=== PATIENT | male | born 1975 | race Caucasian/White ===

== ENCOUNTER 2020-10-11 09:22 | Emergency (ER) | payer BC, SELFPAY ==
[2020-10-11] VITALS (8 sets, daily range): BP systolic 149–191; BP diastolic 91–109; PULSE 66–92; RESP 15–20; TEMP 36.7; O2SAT 96–98
--- NOTE | ~2020-10-11 | XR_ITS ---
EXAMINATION: XR chest 2V DATE: 10/11/2020 10:00 INDICATION: Chest pain. TECHNIQUE: Frontal and lateral views of the chest were obtained. COMPARISON: Chest 2 views 04/15/2018 FINDINGS: The chest demonstrates clear lungs without pneumonia, pleural effusion, or pneumothorax. Th e heart size is normal. IMPRESSION: 1. No acute cardiopulmonary disease. Reviewed, dictated and finalized at location A. CTION PREVENTIONIST
--- NOTE | 2020-10-11 09:24 | ECG_ITS ---
Measurements Intervals [place] Rate: 97 P: 41 [place]: 157 QRS: -4 QRSD: 112 T: 22 QT: 387 QTc: 492 Interpretive Statements SINUS RHYTHM INTRAVENTRICULAR CONDUCTION DELAY VOLTAGE CRITERIA FOR LVH BORDERLINE ST-T WAVE ABNORMALITY- INF/LAT LEADS BASELINE ARTIFACT- I, III, AVR, AVL BORDERLINE ECG Electronically Signed On 10-11-2020 10:48:16 CONSTRUCTION ECONOMIST by Chidi Corrales D.O.
[2020-10-11 09:54] LABS: Basophils Absolute Auto 0.1 K/mm3 (0.0-0.1); Basophils Percent Auto 0.6 % (0.2-1.2); Eosinophils Absolute Auto 0.1 K/mm3 (0-0.3); Eosinophils Percent Auto 1.3 % (0-4.4); Hematocrit 41.6 % (42.0-52.0); Hemoglobin 15.1 g/dL (14.0-18.0); Immature Granulocyte Absolute 0.03 K/mm3 (0.00-0.031); Immature Granulocyte Percent A 0.3 % (0-0.5); Lymphocytes Percent Auto 18.2 % (18.3-44.2); Mean Corpuscular HGB Conc 36.3 g/dl (32-36); Mean Corpuscular Hemoglobin 31.7 pg (26-34); Mean Corpuscular Volume 87.2 fl (80-100); Mean Platelet Volume 8.7 fl (7.4-10.4); Monocytes Absolute Auto 0.6 K/mm3 (0.1-0.6); Monocytes Percent Auto 6.3 % (2.6-8.5); Neutrophils Absolute Auto 6.9 K/mm3 (1.3-6.7); Neutrophils Percent Auto 73.3 % (45.5-73.1); Platelet Count Result 262 k/mm3 (150-375); Red Blood Count 4.77 M/mm3 (4.6-6.20); Red Cell Distribution Width 11.9 % (11.5-14.5); White Blood Count 9.4 K/mm3 (4.5-10.0)
[2020-10-11 10:04] LABS: INR 0.9; Partial Thromboplastin Time 26.6 SECONDS (22.3-36.8); Prothrombin Time 13.1 Seconds (11.1-14.7)
[2020-10-11 10:11] LABS: Anion Gap 7 mmol/L (8-16); Blood Urea Nitrogen 13 mg/dL (9-20); Calcium 8.8 mg/dL (8.4-10.2); Carbon Dioxide 34 mmol/L (22-30); Chloride 100 mmol/L (98-107); Estimated CRCL calculation 102 ml/min; Estimated Glomerular Filt Rate > 60; Glucose 135 mg/dL (75-110); Sodium 141 mmol/L (137-145)
[2020-10-11 10:25] LABS: Troponin I < 0.012 ng/mL (0.000-0.034)
--- NOTE | 2020-10-11 11:00 | PC.NURSE ---
Nitro paste removed from LEFT chest per EDP.
--- NOTE | 2020-10-11 11:48 | ED.CHESTPAIN ---
HPI - Chest Pain General Chief Complaint: Chest Pain Stated Complaint: chest pain x 1 week History of Present Illness HPI narrative: Patient is a 45-year-old male who presents ER with chest pain from his primary care physician's office. Reports he has had central chest pain over the last week. Worse with physical exertion and movement of his upper extremities. No nausea/vomiting/diaphoresis. No exertional shortness of breath. Reports he has history of hypertension and has not been on his medications for a year. Reports his blood pressure was elevated at the PCP and that increase her level of concern. Related Data Allergies Allergy/AdvReac Type Severity Reaction Status Date / Time No Known Drug Allergies Allergy Unknown Unknown Verified 10/11/20 09:38 Review of Systems Review of Systems: All systems reviewed & are unremarkable except as noted in HPI and below Constitutional: Constitutional: Denies chills, Denies fever(s) and Denies weakness ENT: Denies nasal congestion and Denies sore throat Cardiovascular: Cardiovascular: Reports chest pain, Denies rapid heart rate and Denies radiating jaw, neck or arm pain Respiratory: Respiratory: Denies cough, Denies dyspnea and Denies wheezing Gastrointestinal: Gastrointestinal: Denies abdominal pain, Denies nausea and Denies vomiting PMFSH Past Medical History Medical History (Updated 10/11/20 @ 13:46 by Gerard Bazan MD) Hypertension Surgical History Surgical History (Updated 10/11/20 @ 11:52 by Gerard Bazan MD) No history of previous surgery Social History Social History (Updated 10/11/20 @ 11:53 by Gerard Bazan MD) Substance use type: marijuana Gender identity (if verbalized by the patient): Male Exam Narrative: Exam Narrative: GENERAL: Well-appearing, well-nourished, and in no acute distress. HEAD: Normocephalic, atraumatic. ENT: Mucous membranes moist. CHEST: Clear to auscultation. No respiratory distress. HEART: Regular rate and rhythm. Normal peripheral pulses. ABDOMEN: Soft, nontender, nondistended. EXTREMITIES: Normal range of motion. No edema. SKIN: Warm, dry, no rash. NEURO: Alert and oriented x3. PSYCH: Normal mood and affect. Course Course Emergency Course: Patient resting comfortably. Chest pain-free. Troponins negative x2. Discussed with nurse practitioner at [facility]'s office. Will d/c with norvasc and HCTZ and they will have pt f/u. Vital Signs Vital signs: Vital Signs Temperature 98.0 F 10/11/20 09:25 Pulse Rate 92 10/11/20 09:25 Respiratory Rate 16 10/11/20 09:25 Blood Pressure 172/98 H 10/11/20 09:25 Pulse Oximetry 96 10/11/20 09:25 Temperature 98.0 F 10/11/20 09:25 Pulse Rate 70 10/11/20 13:32 Respiratory Rate 15 10/11/20 13:32 Blood Pressure 191/104 H 10/11/20 13:32 Pulse Oximetry 98 10/11/20 13:32 MDM - Chest Pain Lab Data Result diagrams: 10/11/20 09:47 10/11/20 09:47 Labs: Lab Results 10/11/20 10/11/20 10/11/20 Range/Units 09:47 09:47 09:47 WBC 9.4 (4.5-10.0) K/mm3 RBC 4.77 (4.6-6.20) M/mm3 Hgb 15.1 (14.0-18.0) g/dL Hct 41.6 L (42.0-52.0) % MCV 87.2 (80-100) fl MCH 31.7 (26-34) pg MCHC 36.3 H (32-36) g/dl RDW 11.9 (11.5-14.5) % Plt Count 262 (150-375) k/mm3 MPV 8.7 (7.4-10.4) fl Immature Gran % (Auto) 0.3 (0-0.5) % Neut % (Auto) 73.3 H (45.5-73.1) % Lymph % (Auto) 18.2 L (18.3-44.2) % Mathews % (Auto) 6.3 (2.6-8.5) % Eos % (Auto) 1.3 (0-4.4) % Baso % (Auto) 0.6 (0.2-1.2) % Lymph # (Auto) 1.70 (0.9-3.2) K/mm3 Mathews # (Auto) 0.6 (0.1-0.6) K/mm3 Eos # (Auto) 0.1 (0-0.3) K/mm3 Baso # (Auto) 0.1 (0.0-0.1) K/mm3 Abs Immat Gran (auto) 0.03 (0.00-0.031) K/mm3 Absolute Neuts (auto) 6.9 H (1.3-6.7) K/mm3 Absolute Nucleated RBC 0.0 (0.0-0.012) K/mm3 Nucleated RBC % 0.0 (0.0-0.2) % PT 13.1 (11.1-14.7) Seconds INR 0
[2020-10-11 13:00] LABS: Troponin I < 0.012 ng/mL (0.000-0.034)
== END 2020-10-11 14:00 | disposition home or self-care (01) ==
PROVIDERS: Emergency Provider Emergency Medicine
DX: I10 Essential (primary) hypertension (principal); R07.9 Chest pain, unspecified; I45.9 Conduction disorder, unspecified; R94.31 Abnormal electrocardiogram [ECG] [EKG]
CPT/HCPCS: 36415; 71046; 80048; 84484; 85025; 85610; 85730; 93005; 99284

== ENCOUNTER 2021-04-17 10:42 | Emergency (ER) | payer BC, SELFPAY ==
[2021-04-17 10:54] VITALS: BP 184/113; PULSE 71; RESP 18; TEMP 36.3; O2SAT 100
[2021-04-17 10:56] VITALS: BP 184/113; PULSE 71; RESP 18; TEMP 36.3; O2SAT 100
--- NOTE | 2021-04-17 11:05 | ED.GENADULT ---
HPI - General Adult General Chief complaint: Recheck/Abnormal Lab/Rx Stated complaint: RX Refill Source: patient Mode of arrival: ambulatory Limitations: no limitations History of Present Illness HPI narrative: Patient presents requesting a refill on his lisinopril. States he has been on 20 mg of lisinopril for about 1 year. He ran out of medication 2 days ago. He states he feels a little bit flushed but denies any headache, chest pain, shortness of breath. He has an appointment scheduled with his primary doctor 5 days from now. He is planning on contacting the office tomorrow to see if he can get a sooner appointment. Denies illicit drug use and smoking. Maternal history of hypertension. No additional complaints or concerns. Related Data Home Medications Medication Instructions Recorded Confirmed lisinopril 20 mg PO DAILY 04/17/21 04/17/21 Allergies Allergy/AdvReac Type Severity Reaction Status Date / Time No Known Allergies Allergy Verified 04/17/21 10:51 Review of Systems Review of Systems: Narrative: CONSTITUTIONAL: Reports feeling mildly flushed. Denies fever, chills, or sweats. EYES: Denies visual changes, redness, or discharge. ENT: Denies rhinorrhea, congestion, sore throat, or otalgia. CARDIOVASCULAR: Denies chest pain, palpitations, or edema. RESPIRATORY: Denies cough or dyspnea. GASTROINTESTINAL: Denies abdominal pain, nausea, vomiting, or diarrhea. GENITOURINARY: Denies dysuria or hematuria. SKIN: Denies rash or itching. MUSCULOSKELETAL: Denies back pain, joint pain, or myalgia. NEUROLOGIC: Denies headache, numbness, dizziness, or weakness. PSYCHIATRIC: Denies anxiety or depression. PMFSH Past Medical History Medical History Hypertension Surgical History Surgical History (Updated 04/17/21 @ 11:07 by RASHAD [place], ) No pertinent past surgical history Family History Family History Mother No pertinent past medical history Social History Social History Smoking status: Never smoker Alcohol intake: never Substance use: never Living arrangements: with family Gender identity (if verbalized by the patient): Male Sexual Orientation (if Verbalized by the Patient): Straight or Heterosexual Spiritual care concerns: No Exam Narrative: Exam Narrative: GENERAL: Well-appearing, well-nourished, and in no acute distress. HEAD: Normocephalic, atraumatic. EYES: PERRLA and EOMI. ENT: Nares clear, no rhinorrhea or epistaxis. Mucous membranes moist. Oropharynx without tonsillar hypertrophy exudate or other lesions. Bilateral TMs pearly luke nonbulging NECK: Supple. No adenopathy or masses. No carotid bruits or JVD CHEST: Clear to auscultation. No respiratory distress. No wheezes rales or rhonchi HEART: Regular rate and rhythm. No murmur heard. Normal peripheral pulses. ABDOMEN: Soft, nontender, nondistended, normal active bowel sounds. EXTREMITIES: Normal range of motion. No edema. SKIN: Warm, dry, no rash. NEURO: No focal deficits. Alert and oriented x3. PSYCH: Normal mood and affect. Course Course Emergency Course: This is a 46-year-old male who requesting a refill on his lisinopril. He has no chest pain, shortness of breath, headache to suggest that he needs an evaluation in the ER. Plans to DC with a prescription for lisinopril. Call his doctor tomorrow to see if he can get a sooner appointment and if not keep appointment for this coming Sunday. Vital Signs Vital signs: Vital Signs Temperature 36.3 C L 04/17/21 10:54 Pulse Rate 71 04/17/21 10:54 Respiratory Rate 18 04/17/21 10:54 Blood Pressure 184/113 H 04/17/21 10:54 Pulse Oximetry 100 04/17/21 10:54 Temperature 36.3 C L 04/17/21 10:56 Pulse Rate 71 04/17/21 10:56 Respiratory Rate 18 04/17/21 10:56 Blood
== END 2021-04-17 11:11 | disposition home or self-care (01) ==
PROVIDERS: Emergency Provider Nurse Practitioner; PCP Family Medicine
DX: I10 Essential (primary) hypertension (principal)
CPT/HCPCS: 99202; 99203; G0463

== ENCOUNTER 2021-05-13 16:13 | Emergency (ER) | payer BC, SELFPAY ==
--- NOTE | ~2021-05-13 | CT_ITS ---
EXAMINATION: CT brain wo con EXAM DATE: 05/13/2021 19:54 INDICATION: Headache since yesterday. Hypertension. TECHNIQUE: Spiral CT of the head was performed without contrast. Axial, coronal and sagittal images were reviewed. The dose-length product (DLP) for this examination was 681.00 mGy-cm. The exposure w as tailored according to patient size, and iterative reconstruction (ASIR) was used as additional dos e reduction technique. There is no prior study for comparison. FINDINGS: There is no acute intraparenchymal hemorrhage. No evidence of intraparenchymal brain mass lesion. No evidence of acute infarction. There is no mass effect or midline shift. The ventricles are normal in size. There are no extra-axial collections. There are no acute calvarial fractures. T he orbits are unremarkable. Soft tissue is unremarkable. The visualized sinuses and mastoid air jessie ls are well aerated. IMPRESSION: 1. Normal head CT examination. Reviewed, dictated and finalized at location A.
--- NOTE | ~2021-05-13 | XR_ITS ---
EXAMINATION: XR chest 1V portable EXAM DATE: 05/13/2021 19:45 INDICATION: Hypertension. TECHNIQUE: Portable AP frontal chest x-ray was obtained. Comparison is made to prior examination from 10/11/2020. FINDINGS: The lungs are clear. There are no pleural effusions. The cardiomediastinal silhouette is within normal limits. There is no pneumothorax suspected. There are no osseous abnormalities identif ied. IMPRESSION: No acute cardiopulmonary findings. Reviewed, dictated and finalized at location A.
[2021-05-13 16:19] VITALS: BP 171/120; PULSE 85; RESP 18; TEMP 37.1; O2SAT 100
[2021-05-13 19:02] VITALS: BP 191/125; PULSE 76; RESP 21; O2SAT 99
[2021-05-13 19:30] VITALS: BP 169/116; PULSE 85; RESP 22; O2SAT 100
--- NOTE | 2021-05-13 19:30 | PC.NURSE ---
Assumed care of pt at this time. Pt alert and upright on stretcher, VSS.
--- NOTE | 2021-05-13 19:35 | ECG_ITS ---
Measurements Intervals [place] Rate: 60 P: 20 [place]: 164 QRS: 6 QRSD: 110 T: 21 QT: 404 QTc: 407 Interpretive Statements SINUS RHYTHM BASELINE ARTIFACT- I, II, III, AVR, AVL,A VF, V1-V2 NORMAL ECG Electronically Signed On 05-13-2021 20:54:45 CDT by Chidi Corrales D.O.
[2021-05-13 20:40] VITALS: BP 167/112; PULSE 75; RESP 16; O2SAT 100
[2021-05-13] MEDS: ONDANSETRON INJ 4 MG/2 ML VIAL IV PUSH (20:41)
[2021-05-13] MEDS: HYDROmorphone HCL INJ (*CRX) 1 MG/ML SYR 0.5 MG IV PUSH (20:42)
[2021-05-13] MEDS: LABETALOL HCL INJ 100 MG/20 ML VIAL 20 MG IV PUSH (20:45)
--- NOTE | 2021-05-13 20:46 | ED.GENADULT ---
HPI - General Adult General Chief complaint: Recheck/Abnormal Lab/Rx Stated complaint: BLOOD PRESSURE ELEVATED Time Seen by Provider: 05/13/21 19:30 Source: patient Mode of arrival: ambulatory Limitations: no limitations History of Present Illness HPI narrative: Patient is 46 years old white male presents with bilateral temporal headache and elevated blood pressure. History of hypertension for 2 years, on lisinopril 20 mg once a day. Patient switched to schedule at work, with few night shifts, noticed bilateral temporal headache 2 days ago. Patient denies nausea, vomiting, chest pain, shortness of breath, fever or chills. Patient been checking his blood pressure almost 10 times a day since the beginning of the headache. Patient normally does not monitor his blood pressure. Related Data Home Medications Medication Instructions Recorded Confirmed lisinopril 20 mg PO DAILY 04/17/21 04/17/21 Allergies Allergy/AdvReac Type Severity Reaction Status Date / Time No Known Allergies Allergy Verified 04/17/21 10:51 Review of Systems Review of Systems: Narrative: CONSTITUTIONAL: Denies fever, chills, or sweats. EYES: Denies visual changes, redness, or discharge. ENT: Denies rhinorrhea, congestion, sore throat, or otalgia. CARDIOVASCULAR: Denies chest pain, palpitations, or edema. RESPIRATORY: Denies cough or dyspnea. GASTROINTESTINAL: Denies abdominal pain, nausea, vomiting, or diarrhea. GENITOURINARY: Denies dysuria or hematuria. SKIN: Denies rash or itching. MUSCULOSKELETAL: Denies back pain, joint pain, or myalgia. NEUROLOGIC: Denies headache, numbness, or weakness. PSYCHIATRIC: Denies anxiety or depression. [facility] Past Medical History Medical History Hypertension Surgical History Surgical History No pertinent past surgical history Family History Family History Mother No pertinent past medical history Social History Social History Smoking status: Never smoker Alcohol intake: never Substance use: never Gender identity (if verbalized by the patient): Male Spiritual care concerns: No Exam Narrative: Exam Narrative: General appearance: Well-developed, well-nourished Skin: Normal color Head: Normocephalic, nontraumatic Eyes: Clear conjunctiva ENT: Oropharynx normal, ears normal, nose normal Neck: Supple, nontender Chest and respiratory: Airway patent, no respiratory distress, no accessory muscle use Heart: Regular rate/rhythm Abdomen: Soft, nontender, no organomegaly, quiet bowel sounds Vascular: Normal peripheral pulses, normal capillary refill. Musculoskeletal: Normal range of motion, nontender back Neurologic: Alert and oriented ?3, CIVIL CADD TECHNICIAN is normal as tested, no gross motor deficit Course Course Emergency Course: Uncontrolled hypertension and headache. Headache probably the underlying cause of the hypertension or vice versa. Labs, CT head, IV Dilaudid and Zofran ordered. Vital Signs Vital signs: Vital Signs Temperature 37.1 C 05/13/21 16:19 Pulse Rate 85 05/13/21 16:19 Respiratory Rate 18 05/13/21 16:19 Blood Pressure 171/120 H 05/13/21 16:19 Pulse Oximetry 100 05/13/21 16:19 Temperature 37.1 C 05/13/21 16:19 Pulse Rate 75 05/13/21 20:40 Respiratory Rate 16 05/13/21 20:40 Blood Pressure 167/112 H 05/13/21 20:40 Pulse Oximetry 100 05/13/21 20:40 Medical Decision Making MDM Narrative Medical decision making narrative: Hypertension and headache Differential Diagnosis
[2021-05-13 20:56] LABS: Basophils Percent Auto 0.4 % (0.2-1.2); Eosinophils Absolute Auto 0.1 K/mm3 (0-0.3); Eosinophils Percent Auto 1.1 % (0-4.4); Hematocrit 39.2 % (42.0-52.0); Hemoglobin 13.8 g/dL (14.0-18.0); Immature Granulocyte Absolute 0.02 K/mm3 (0.00-0.031); Immature Granulocyte Percent A 0.2 % (0-0.5); Lymphocytes Absolute Auto 2.25 K/mm3 (0.9-3.2); Lymphocytes Percent Auto 21.6 % (18.3-44.2); Mean Corpuscular HGB Conc 35.2 g/dl (32-36); Mean Corpuscular Hemoglobin 31.4 pg (26-34); Mean Corpuscular Volume 89.1 fl (80-100); Mean Platelet Volume 9.2 fl (7.4-10.4); Monocytes Absolute Auto 0.7 K/mm3 (0.1-0.6); Neutrophils Absolute Auto 7.3 K/mm3 (1.3-6.7); Neutrophils Percent Auto 69.7 % (45.5-73.1); Platelet Count Result 288 k/mm3 (150-375); Red Cell Distribution Width 12.1 % (11.5-14.5); White Blood Count 10.4 K/mm3 (4.5-10.0)
[2021-05-13 21:16] LABS: Alanine Aminotransferase 37 U/L (4-50); Albumin Level 4.4 g/dL (3.5-5.1); Alkaline Phosphatase 79 U/L (38-126); Anion Gap 9 mmol/L (8-16); Aspartate Amino Transferase 32 U/L (17-59); Bilirubin,Total 0.7 mg/dL (0.2-1.3); Blood Urea Nitrogen 14 mg/dL (9-20); Calcium 9.4 mg/dL (8.4-10.2); Carbon Dioxide 29 mmol/L (22-30); Chloride 103 mmol/L (98-107); Estimated CRCL calculation 101 ml/min; Estimated Glomerular Filt Rate > 60; Glucose 91 mg/dL (65-110); Potassium 3.1 mmol/L (3.4-5.0); Sodium 141 mmol/L (137-145)
[2021-05-13 21:36] VITALS: BP 145/110; PULSE 65; RESP 16; O2SAT 96
== END 2021-05-13 21:39 | disposition home or self-care (01) ==
PROVIDERS: Emergency Provider Emergency Medicine; PCP Family Medicine
DX: I10 Essential (primary) hypertension (principal)
CPT/HCPCS: 36415; 70450; 71045; 80053; 85025; 93005; 96374; 96375; 99284; J1170; J2405

== ENCOUNTER 2023-02-11 09:27 | Emergency (ER) | payer BC, SELFPAY ==
[2023-02-11 09:37] VITALS: BP 159/108; PULSE 83; RESP 16; TEMP 36.6; O2SAT 98
--- NOTE | 2023-02-11 10:06 | ED.BACK ---
HPI - Back Pain/Injury General Chief Complaint: Back Pain/Injury Stated Complaint: lower back pain Time Seen by Provider: 02/11/23 10:06 Source: patient Mode of arrival: ambulatory Limitations: no limitations History of Present Illness HPI Narrative: 47-year-old male presents with complaint of back pain across midback for the past week. Reports pain started after doing heavy lifting at work. 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 Is taking Tylenol to treat his pain. ambulatory with steady gait. No complaints of radiation of pain to upper lower extremities. No numbness or tingling. No weakness to extremities. Has not seen his primary care physician for this problem. Does not want to take ibuprofen due to history of high blood pressure. No loss of bowel or bladder. All systems reviewed and negative except as noted above. Related Data Home Medications Medication Instructions Recorded Confirmed lisinopril 20 mg tablet 20 mg PO DAILY 04/17/21 04/17/21 atorvastatin 02/11/23 ergocalciferol (vitamin D2) 1,250 02/11/23 mcg (50,000 unit) capsule potassium chloride 20 mEq meq PO 02/11/23 tablet,extended release Allergies Allergy/AdvReac Type Severity Reaction Status Date / Time No Known Drug Allergies Allergy Unknown Unknown Verified 02/11/23 09:56 Review of Systems Review of Systems: CONSTITUTIONAL: Denies fever, chills, or sweats. EYES: Denies visual changes, redness, or discharge. ENT: Denies rhinorrhea, congestion, sore throat, or otalgia. CARDIOVASCULAR: Denies chest pain, palpitations, or edema. RESPIRATORY: Denies cough or dyspnea. GASTROINTESTINAL: Denies abdominal pain, nausea, vomiting, or diarrhea. GENITOURINARY: Denies dysuria or hematuria. SKIN: Denies rash or itching. MUSCULOSKELETAL: Reports back pain. Denies joint pain, or myalgia. NEUROLOGIC: Denies headache, numbness, or weakness. PSYCHIATRIC: Denies anxiety or depression. All other systems reviewed are negative, except as documented in HPI. [facility] Past Medical History Medical History Hypertension Surgical History Surgical History No pertinent past surgical history Family History Family History Mother No pertinent past medical history Social History Social History (System 12/21/21 @ 12:44 by Lori Roe) Smoking status: Never smoker Alcohol intake: never Substance use: never Substance use type: marijuana Living arrangements: with family Gender identity (if verbalized by the patient): Male Sexual Orientation (if Verbalized by the Patient): Straight or Heterosexual Spiritual care concerns: No Comments At time of signature, agree with nursing past medical, surgical, social and family history. There is no relevant family history pertinent to the presenting complaint. Exam Narrative: GENERAL: This is a well-nourished, well-developed patient, in no apparent distress. HEAD: normocephalic, atraumatic. EYES: PERRL. Sclera clear/white. Vision is grossly intact. EARS: External ears normal NOSE: External nose normal . NECK: Neck supple, non-tender without lymphadenopathy, masses or thyromegaly. CARDIOVASCULAR: Regular rate and rhythm without murmurs, gallops, or rubs. RESPIRATORY: Clear to auscultation. Breath sounds equal bilaterally. No wheezes, rales, or rhonchi. SKIN: warm, Dry, intact with no suspicious lesions or rash, good texture and turgor. NEURO: awake, alert, and oriented to person, place and time. There were no obvious focal neurologic abnormalities. EXTREMITIES: No joint tenderness, effusion, or edema noted. BACK: no midline tenderness. No deformity. Bilateral muscular tenderness thoracic aspect. Range of motion normal. Lower extremity strength bilaterally 5/5. Gait normal. Co
== END 2023-02-11 10:25 | disposition home or self-care (01) ==
PROVIDERS: Emergency Provider Nurse Practitioner Family; PCP Family Medicine
DX: S29.012A Strain of muscle and tendon of back wall of thorax, initial encounter (principal); X50.0XXA Overexertion from strenuous movement or load, initial encounter; Y99.0 Civilian activity done for income or pay; I10 Essential (primary) hypertension
CPT/HCPCS: 99213; G0463

== ENCOUNTER 2024-06-04 17:28 | Emergency (ER) | payer BC, SELFPAY ==
[2024-06-04] VITALS (10 sets, daily range): BP systolic 121–144; BP diastolic 79–95; PULSE 60–92; RESP 17–18; TEMP 36.4; O2SAT 94–100
--- NOTE | ~2024-06-04 | CT_ITS ---
EXAMINATION: CT abdomen pelvis wo con DATE: 06/04/2024 18:40 INDICATION: Left flank pain TECHNIQUE: Computed tomography (CT) of the abdomen and pelvis was performed without intravenous contr ast. Automated exposure control and iterative reconstruction technique were employed. The dose-length product was 1421.82 mGy-cm. COMPARISON: None FINDINGS: Lung bases are clear. Heart size is normal. No pericardial or pleural effusion. Small sliding-type hi atal hernia. Liver, gallbladder, spleen, pancreas and bilateral adrenal glands are normal. Kidneys an d ureters are normal with no urolithiasis, hydroureteronephrosis or perinephric/ureteral stranding. B ladder is normal. There are few scattered colonic diverticula without adjacent inflammatory stranding to suggest diverticulitis. Small bowel and appendix are normal. Small fat-containing umbilical herni a. No free intraperitoneal gas or fluid. No pathologically enlarged abdominal or pelvic lymphadenopat hy. Small bilateral hydroceles at the visualized scrotum. Chronic appearing minimal to mild anterior wedging of multiple mid to lower thoracic vertebral bodies and L1. Moderate to severe thoracic and mi ld lumbar spondylosis. IMPRESSION: 1. No urolithiasis or acute intra-abdominal/pelvic process. 2. Small sliding-type hiatal hernia. 3. Small bilateral hydroceles. Reviewed, dictated and finalized at location A.
--- NOTE | 2024-06-04 18:01 | ED.GENADULT ---
HPI - General Adult General Chief complaint: Back Pain/Injury Stated complaint: left side pain Time Seen by Provider: 06/04/24 17:52 Source: patient Mode of arrival: ambulatory Limitations: no limitations History of Present Illness HPI narrative: Pt is a 49-year-old male presenting to the ER with L flank pain that started several weeks ago but has progressively worsened over the past two days. He endorses increased pain with movement and denies radiating pain. Pt denies SOB, chest pain, extremity swelling and urinary symptoms. He reports the pain got worse today after he had a bowel movement. Pt has taken Tylenol at home with minimal relief. Related Data Home Medications Medication Instructions Recorded Confirmed lisinopril 20 mg tablet 20 mg PO DAILY 04/17/21 04/17/21 atorvastatin 02/11/23 ergocalciferol (vitamin D2) 1,250 02/11/23 mcg (50,000 unit) capsule potassium chloride 20 mEq meq PO 02/11/23 tablet,extended release Allergies Allergy/AdvReac Type Severity Reaction Status Date / Time No Known Drug Allergies Allergy Unknown Unknown Verified 02/11/23 09:56 Review of Systems Review of Systems: All systems reviewed & are unremarkable except as noted in HPI and below (HPI) PMFSH Past Medical History Medical History Hypertension Hypertension Surgical History Surgical History No history of previous surgery No pertinent past surgical history Family History Family History Mother No pertinent past medical history Social History Social History Smoking status: Never smoker Alcohol intake: never Substance use: never Substance use type: marijuana Living arrangements: with family Gender identity (if verbalized by the patient): Male Sexual Orientation (if Verbalized by the Patient): Straight or Heterosexual Spiritual care concerns: No Exam Narrative: GENERAL: Well-appearing, well-nourished, obese, and in no acute distress but mildly diaphoretic. HEAD: Normocephalic, atraumatic. EYES: PERRLA and EOMI. ENT: Nares clear, no rhinorrhea or epistaxis. Mucous membranes moist. NECK: Supple. CHEST: Clear to auscultation. No respiratory distress. HEART: Regular rate and rhythm. No murmur heard. Normal peripheral pulses. ABDOMEN: Soft, tender, distended, normal active bowel sounds. EXTREMITIES: Normal range of motion. No edema. SKIN: Warm, dry, no rash. NEURO: No focal deficits. Alert and oriented x3. PSYCH: Normal mood and affect. GI: Inspection: distended GI Palp: Yes Tenderness to palpation present (GI) and Yes Guarding due to palpation present (GI) Auscultation: normal bowel sounds Course Vital Signs Vital signs: Vital Signs Temperature 36.4 C 06/04/24 17:30 Pulse Rate 92 06/04/24 17:30 Respiratory Rate 18 06/04/24 17:30 Blood Pressure 144/95 H 06/04/24 17:30 Pulse Oximetry 99 06/04/24 17:30 Oxygen Delivery Room Air 06/04/24 17:30 Temperature 36.4 C 06/04/24 17:30 Pulse Rate 60 06/04/24 19:24 Respiratory Rate 17 06/04/24 19:24 Blood Pressure 121/79 06/04/24 19:24 Pulse Oximetry 97 06/04/24 19:24 Oxygen Delivery Room Air 06/04/24 17:30 Medical Decision Making MDM Narrative Medical decision making narrative: Pt is a 49-year-old male who presents to the ER with L flank pain that started several weeks ago but has worsened over the last two days. He reports the pain worsened when he had a bowel movement earlier today. Pt denies previous kidney stones or previous back/flank injury. He also endorses being diaphoretic d/t pain. Pt's exam is unremarkable except for significant tenderness in his L upper and lower quadrants. He is guarding during his exam and endorses L sided abdominal pain with
[2024-06-04] MEDS: MORPHINE SULFATE (*CRX) 4 MG/ML INJ IV PUSH (18:24)
[2024-06-04] MEDS: ONDANSETRON INJ 4 MG/2 ML VIAL IV PUSH (18:24)
[2024-06-04 18:25] LABS: Basophils Percent Auto 0.3 % (0.2-1.2); Eosinophils Absolute Auto 0.1 K/mm3 (0-0.3); Hematocrit 40.2 % (42.0-52.0); Hemoglobin 14.5 g/dL (14.0-18.0); Immature Granulocyte Absolute 0.03 K/mm3 (0.00-0.031); Immature Granulocyte Percent A 0.3 % (0-0.5); Lymphocytes Absolute Auto 1.95 K/mm3 (0.9-3.2); Lymphocytes Percent Auto 16.5 % (18.3-44.2); Mean Corpuscular HGB Conc 36.1 g/dl (32-36); Mean Corpuscular Hemoglobin 31.7 pg (26-34); Mean Platelet Volume 8.6 fl (7.4-10.4); Monocytes Absolute Auto 0.9 K/mm3 (0.1-0.6); Monocytes Percent Auto 7.6 % (2.6-8.5); Neutrophils Absolute Auto 8.8 K/mm3 (1.3-6.7); Neutrophils Percent Auto 74.3 % (45.5-73.1); Platelet Count Result 316 k/mm3 (150-375); Red Blood Count 4.57 M/mm3 (4.6-6.20); Red Cell Distribution Width 12.2 % (11.5-14.5); White Blood Count 11.8 K/mm3 (4.5-10.0)
[2024-06-04] MEDS: SODIUM CHLORIDE 0.9% IV 1,000 ML 999 ML IV CONT (18:28)
[2024-06-04 18:37] LABS: Alanine Aminotransferase 37 U/L (6-50); Albumin Level 4.5 g/dL (3.5-5.1); Alkaline Phosphatase 74 U/L (38-126); Anion Gap 11 mmol/L (4-12); Aspartate Amino Transferase 34 U/L (17-59); Bilirubin,Total 0.7 mg/dL (0.2-1.3); Blood Urea Nitrogen 19 mg/dL (9-20); Calcium 8.8 mg/dL (8.4-10.2); Carbon Dioxide 30 mmol/L (22-30); Chloride 99 mmol/L (98-107); Estimated CRCL calculation 83 ml/min; Estimated Glomerular Filt Rate 59; Glucose 127 mg/dL (65-110); Potassium 2.9 mmol/L (3.4-5.0); Sodium 140 mmol/L (137-145)
[2024-06-04] MEDS: POTASSIUM CHLORIDE 20 MEQ ER TABLET 40 MEQ PO (19:45)
[2024-06-04] MEDS: KETOROLAC 15 MG/ML VIAL (*BKC) IV PUSH (19:45)
--- NOTE | 2024-06-04 19:47 | PC.NURSE ---
Pt asked to provided urine sample and stated he can not at this time. Pt informed that straight cath would be necessary if unable to provide sample. Pt refused.
[2024-06-04 21:38] LABS: Add Urine Microscopic? YES; Appearance Urine Clear (Clear); Bacteria Urine None Seen /hpf; Bilirubin Urine Negative (Negative); Blood Urine Negative (Negative); Color Urine Yellow (Yellow); Glucose Urine UA Negative (Negative); Ketones Urine Trace mg/dL (Negative); Leukocyte Esterase Ur Negative LEU/UL (Negative); Need Manual Microscopic Reviewed; Nitrate Urine Negative (Negative); Protein Urine Trace mg/dL (Negative); Specific Grav Ur 1.025 (1.001-1.035); Squamous Epithelial Cell Urine None Seen /hpf (Few); WBC Urine 0-5 /hpf (0-3); pH Urine 5.5 (5.0-9.0)
[2024-06-04] MEDS: ACETAMINOPHEN 500 MG TABLET 1000 MG PO (22:07)
[2024-06-04] MEDS: CYCLOBENZAPRINE HCL 5 MG TABLET PO (22:08)
== END 2024-06-04 22:15 | disposition home or self-care (01) ==
PROVIDERS: Emergency Provider Registered Nurse; PCP Family Medicine
DX: S39.012A Strain of muscle, fascia and tendon of lower back, initial encounter (principal); I10 Essential (primary) hypertension; X58.XXXA Exposure to other specified factors, initial encounter
CPT/HCPCS: 36415; 74176; 80053; 81001; 85025; 96361; 96374; 96375; 99284; A9270; J1885; J2270; J2405; J7030

== ENCOUNTER 2025-05-20 15:33 | Emergency (ER) | payer BC, SELFPAY ==
--- NOTE | 2025-05-20 15:39 | ED.GENADULT ---
HPI - General Adult General Chief complaint: Ear Stated complaint: R ear pain Source: patient Mode of arrival: ambulatory Limitations: no limitations History of Present Illness HPI narrative: Pt is a 50 y/o male presenting with c/o R. otalgia x 2 days. No known trauma. No recent swimming. Reports using at home curette last night without improvement in sx. No concurrent URI sx. No recent travel. No additional complaints. Related Data Home Medications ?Medication ?Instructions ?Recorded ?Confirmed ?Last Taken ?Type atorvastatin 02/11/23 Unknown History Allergies Allergy/AdvReac Type Severity Reaction Status Date / Time No Known Drug Allergies Allergy Unknown Unknown Verified 05/20/25 15:34 Review of Systems Review of Systems: CONSTITUTIONAL: Denies body aches, fever, chills, or sweats. EYES: Denies visual changes, redness, or discharge. ENT: Reports R. otalgia. Denies rhinorrhea, congestion, sore throat CARDIOVASCULAR: Denies chest pain, palpitations, or edema. RESPIRATORY: Denies cough or dyspnea. GASTROINTESTINAL: Denies abdominal pain, nausea, vomiting, or diarrhea. GENITOURINARY: Denies dysuria or hematuria. SKIN: Denies rash, itching, or wounds. MUSCULOSKELETAL: Denies back pain, joint pain, or myalgia. NEUROLOGIC: Denies headache, numbness, tingling, or weakness. PSYCH: Denies depression or anxiety. PMFSH Past Medical History Medical History Hypertension Hypertension Surgical History Surgical History No history of previous surgery No pertinent past surgical history Family History Family History Mother No pertinent past medical history Social History Social History Smoking status: Never smoker Alcohol intake: never Substance use: never Substance use type: marijuana Living arrangements: with family Gender identity (if verbalized by the patient): Male Sexual Orientation (if Verbalized by the Patient): Straight or Heterosexual Spiritual care concerns: No Exam Narrative: GENERAL: Well-appearing, well-nourished, and in no acute distress. HEAD: Normocephalic, atraumatic. EYES: EOMI. No redness or drainage. Conjunctivae normal. ENT: Mucous membranes pink and moist. Nares clear. No rhinorrhea. Lester. auditory canals impacted with soft cerumen. TMs normal bilaterally. Throat normal. Uvula midline.no mastoid tenderness. NECK: Normal AROM. Supple. No lymphadenopathy. CHEST: No respiratory distress. HEART: Regular rate SKIN: Warm, dry, no rash. Capillary refill normal. Normal skin turgor. NEURO: No focal deficits. Alert and oriented x3. Gait steady. PSYCH: Normal affect. No signs of depression or anxiety. Course Course Emergency Course: Reports resolution of pain after irrigation Level of Care: Express Care Visit Vital Signs Vital signs: Vital Signs Temperature 98.6 F 05/20/25 15:40 Pulse Rate 74 05/20/25 15:40 Respiratory Rate 16 05/20/25 15:40 Blood Pressure 138/84 05/20/25 15:40 Pulse Oximetry 98 05/20/25 15:40 Oxygen Delivery Room Air 05/20/25 15:40 Temperature 98.6 F 05/20/25 15:40 Pulse Rate 74 05/20/25 15:40 Respiratory Rate 16 05/20/25 15:40 Blood Pressure 138/84 05/20/25 15:40 Pulse Oximetry 98 05/20/25 15:40 Oxygen Delivery Room Air 05/20/25 15:40 Procedures Ear Wax Removal Both Ears: Ear Wax Removal Date: 05/20/25 Ear Wax Removal Time: 15:55 Cerumenolytic Used: other (hydrogen peroxide, saline) Results: Re-examined: cerumen removed completely TM Examination: TM(s) intact, normal appearance Ear Canal Exam: atraumatic Patient Tolerated Procedure: well Complications: no problems Technique: ear canal irrigated Medical Decision Making Vital Signs Vital Signs: Vital Signs Temperature 98.6 F 05/20/25 15:40 Pulse Rate 74 05/20/25 15:40 Respiratory Rate 16 05/20/25 15:40 Blood Pressure 138/84 05/20/25 15:40 Pulse Oximetry 98 05/20/25 15:40 Oxygen Delivery Room Air 05/20/25 15:40 Temperature 98.6 F 05/20/25 15:40 Pulse Rate 74 05/20/25 15:40 Respiratory Rate 16 05/20/25 15:40 Blood Pressure 138/84 05/20/25 15:40 Pulse Oximetry 98 05/20/25 15:40 Oxygen Delivery Room Air 05/20/25 15:40 Discharge Plan Discharge Clinical Impression: Otalgia of right ear Cerumen impaction Qualifiers: Laterality: bilateral Qualified Code(s): H61.23 - Impacted cerumen, bilateral Hypertension Qualifiers: Hypertension type: unspecified Qualified Code(s): I10 - Essential (primary) hypertension Patient Disposition: Home Condition: Stable Patient Language: Austrian Prescriptions: No Action atorvastatin amlodipine [Norvasc] 10 mg tablet 10 mg PO DAILY Qty: 10 0RF hydrochlorothiazide 25 mg tablet 25 mg PO DAILY Qty: 10 0RF Follow-up/Referrals: Harry Sims MD [Primary Care Provider] - 05/20/25 Time of Disposition: 16:01
[2025-05-20 15:40] VITALS: BP 138/84; PULSE 74; RESP 16; TEMP 37; O2SAT 98
== END 2025-05-20 16:04 | disposition home or self-care (01) ==
PROVIDERS: Emergency Provider Registered Nurse; PCP Family Medicine
DX: H92.01 Otalgia, right ear (principal); H61.23 Impacted cerumen, bilateral; I10 Essential (primary) hypertension
CPT/HCPCS: 69209; 99212; G0463